=== PATIENT | female | born 1955 | race Two or more races ===

== ENCOUNTER 2021-11-06 21:45 | Observation (INO) | payer MEDICARE ==
[2021-11-06 23:04] LABS: CARBON DIOXIDE,CO2 23.8 mmol/L (21.0-32.0)
[2021-11-07] MEDS ORDERED: Furosemide 40 MG/4 ML VIAL IVPUSH STA (00:18)
[2021-11-07] MEDS ORDERED: Acetaminophen 325 MG Tab PO PRN (02:01)
[2021-11-07] MEDS ORDERED: Albuterol/Ipratropium 3.0-0.5 MG/3 ML Neb Soln NEB PRN (02:04)
[2021-11-07 06:55] LABS: CARBON DIOXIDE,CO2 24.7 mmol/L (21.0-32.0); POTASSIUM,K 3.8 mmol/L (3.5-5.1)
[2021-11-07] MEDS ORDERED: 50% Dextrose in Water 50 ML Syringe IVPUSH PRN (07:30)
[2021-11-07] MEDS ORDERED: Magnesium Oxide 400 MG Tab PO ONE (07:30)
[2021-11-07] MEDS ORDERED: Glucagon,Human Recombinant 1 MG Vial IM PRN (07:30)
[2021-11-07] MEDS: Aspirin 81 MG Tab.Chew PO SCH (08:03)
[2021-11-07] MEDS: Furosemide 40 MG/4 ML VIAL IVPUSH SCH (08:04)
[2021-11-07] MEDS: Insulin Aspart 100 Units/ML 3 ML Pen SUBCUT SCH ×3 (08:05→17:02)
[2021-11-07] MEDS ORDERED: Metoprolol Tartrate 50 MG Tab PO SCH (09:00)
[2021-11-07] MEDS ORDERED: atorvaSTATin 40 MG Tab PO SCH (21:00)
[2021-11-08] MEDS: Insulin Aspart 100 Units/ML 3 ML Pen SUBCUT SCH ×2 (06:52→13:03)
[2021-11-08 07:37] LABS: CARBON DIOXIDE,CO2 27.1 mmol/L (21.0-32.0); POTASSIUM,K 4.2 mmol/L (3.5-5.1)
[2021-11-08] MEDS ORDERED: Lisinopril 5 MG Tab PO SCH (09:00)
[2021-11-08] MEDS: Aspirin 81 MG Tab.Chew PO SCH (09:05)
[2021-11-08] MEDS: Furosemide 40 MG/4 ML VIAL IVPUSH SCH (09:05)
== END 2021-11-08 12:30 | disposition home or self-care (01) ==
LOC: MW.ED 21:45 → MW.MS 11-07 00:21
PROVIDERS: ADMIT Student in an Organized Health Care Education/Training Program; ATTEND Student in an Organized Health Care Education/Training Program
DX: I11.0 Hypertensive heart disease with heart failure (principal); I50.9 Heart failure, unspecified; E78.5 Hyperlipidemia, unspecified; E11.9 Type 2 diabetes mellitus without complications; J98.11 Atelectasis; G47.30 Sleep apnea, unspecified; Z79.899 Other long term (current) drug therapy; Z79.84 Long term (current) use of oral hypoglycemic drugs; Z79.82 Long term (current) use of aspirin; Z79.02 Long term (current) use of antithrombotics/antiplatelets; Z98.890 Other specified postprocedural states; Z87.891 Personal history of nicotine dependence; Z20.822 Contact with and (suspected) exposure to COVID-19
CPT/HCPCS: 36415; 71045; 80053; 82947; 83735; 83880; 84100; 84484; 85025; 85027; 85610; 93005; 93306; 96374; 96376; 99285; A9270; G0378; J1815; J1940; U0002; 93010; 99217; 99219; 99291

== ENCOUNTER 2022-01-20 17:26 | Emergency (ER) | payer MEDICARE ==
[2022-01-20] MEDS ORDERED: Sodium Chloride 0.9% 10 ML Syringe FLUSH PRN (18:17)
[2022-01-20] MEDS ORDERED: Sodium Chloride 0.9% 2.5 ML Syringe FLUSH PRN (18:17)
[2022-01-20 20:02] LABS: CARBON DIOXIDE,CO2 23.5 mmol/L (21.0-32.0); POTASSIUM,K 5.3 mmol/L (3.5-5.1)
[2022-01-20] MEDS ORDERED: Aspirin 81 MG Tab.EC PO ONE (20:16)
[2022-01-20] MEDS ORDERED: Clopidogrel 75 MG Tab PO ONE (20:17)
[2022-01-20] MEDS ORDERED: Aspirin 81 MG Tab.Chew PO ONE (20:25)
[2022-01-20] MEDS ORDERED: Aspirin 81 MG Tab.Chew ONE (20:25)
[2022-01-20] MEDS ORDERED: Heparin Sodium 5,000 Units/ML Vial IVPUSH ONE (20:28)
[2022-01-20] MEDS ORDERED: Heparin Sodium/0.45% NaCl 500 ML IV SCH (20:30)
[2022-01-20] MEDS ORDERED: Nitroglycerin 0.4 MG Tab.SL SL ONE (20:36)
[2022-01-20] MEDS ORDERED: Sodium Chloride 0.9% 1,000 ML IV SCH (21:30)
== END 2022-01-20 21:46 ==
LOC: MW.ED 17:26
DX: I21.4 Non-ST elevation (NSTEMI) myocardial infarction (principal); I11.0 Hypertensive heart disease with heart failure; I50.9 Heart failure, unspecified; E11.9 Type 2 diabetes mellitus without complications; Z87.891 Personal history of nicotine dependence; Z79.82 Long term (current) use of aspirin; Z79.899 Other long term (current) drug therapy; Z20.822 Contact with and (suspected) exposure to COVID-19
CPT/HCPCS: 36415; 71045; 80053; 81001; 83690; 84484; 85025; 85379; 85610; 85730; 93005; 96365; 99285; A9270; J1644; J3490; J7030; U0002